=== PATIENT | male | born 1955 | race Caucasian/White ===

== ENCOUNTER → 2017-01-30 | Outpatient (CLI) | payer OTHER | LOC: FIMAGING 09:50 | PROVIDERS: ATTEND Internal Medicine | DX: R05 Cough (principal) ==

== ENCOUNTER 2017-07-26 20:36 | Emergency (ER) | payer OTHER ==
[2017-07-26 20:47] VITALS: RESP 20
[2017-07-26] MEDS ORDERED: ALBUTEROL 3 ML DEYVIAL IH ONE ×2 (20:54→21:47)
--- NOTE | 2017-07-26 20:57 | EDPHY ---
H & P Stated Complaint: cough Time Seen by Provider: 07/26/17 20:48 HPI/ROS: Chief Complaint: Cough HPI: 62-year-old male presenting with 1 1/2 weeks of dry, nonproductive cough. No fevers or chills. No shortness of breath. No abdominal pain. No nausea or vomiting. No chest pain. He does not smoke. Does drink alcohol. Denies any other recreational drug use. No aggravating or relieving factors. Does feel like he is wheezing as well. ROS: 10 point Review of Systems is negative except as noted in the HPI. PMH: Hypertension, hyperlipidemia Social History: No smoking, occasional alcohol, no recreational drug use Family History: non-contributory Physical Exam: Gen: Awake, Alert, No Distress HEENT: Nose: no rhinorrhea Eyes: PERRLA, EOMI Mouth: Moist mucosa Neck: Supple, no JVD Chest: nontender, diffuse expiratory wheezes, no focal rales or rhonchi Heart: S1, S2 normal, no murmur Abd: Soft, non-tender, no guarding Back: no CVA tenderness, no midline tenderness Ext: no edema, non-tender Skin: no rash Neuro: CN II-XII intact, Sensation grossly intact, Strength 5/5 in bilateral upper and lower extremities - Personal History Current Tetanus Diphtheria and Acellular Pertussis (TDAP): Unsure - Medical/Surgical History Hx Asthma: No Hx Chronic Respiratory Disease: No Hx Diabetes: Yes Hx Cardiac Disease: No Hx Renal Disease: No Hx Cirrhosis: No Hx Alcoholism: No Hx HIV/AIDS: No Hx Splenectomy or Spleen Trauma: No Other PMH: HTN, gout, elevated cholesterol. Surgical history includes right ACL repair and left meniscus surgery - Social History Smoking Status: Never smoked Constitutional: Initial Vital Signs Temperature (C) 36.3 C 07/26/17 20:44 Heart Rate 71 07/26/17 20:44 Respiratory Rate 20 07/26/17 20:44 Blood Pressure 141/102 H 07/26/17 20:44 O2 Sat (%) 94 07/26/17 20:44 Allergies/Adverse Reactions: No Known Allergies Allergy (Verified 07/26/17 20:44) Home Medications: Medication Instructions Recorded Aspirin [Aspirin 81mg (*)] 04/23/16 Diltiazem Cd [Cardizem ER 120 MG 04/23/16 (*)] Ezetimibe [Zetia 10 MG (*)] 04/23/16 FENOFIBRATE 04/23/16 Metoprolol Succinate 04/23/16 Rosuvastatin Calcium [Crestor 20mg 04/23/16 (*)] Benzonatate [Tessalon Pearles (RX)] 100 mg PO TID PRN #10 cap 07/26/17 Medical Decision Making - Data Points Medications Given: Discontinued Medications Albuterol (Proventil Neb) 3 ml IH EDNOW ONE Stop: 07/26/17 20:55 Last Admin: 07/26/17 20:58 Dose: 3 ml Albuterol (Proventil Neb) 3 ml IH EDNOW ONE Stop: 07/26/17 21:48 Last Admin: 07/26/17 21:49 Dose: 3 ml Benzonatate (Tessalon Pearles) 100 mg PO EDNOW ONE Stop: 07/26/17 21:13 Last Admin: 07/26/17 21:15 Dose: 100 mg Departure - Departure Disposition: Home, Routine, Self-Care Clinical Impression: Acute bronchitis Condition: Good Instructions: Acute Bronchitis (ED) Additional Instructions: Use the inhaler, 2 puffs every 4 hr, for cough or wheeze. Always use a spacer when you use inhaler. If you are still coughing you may use Tessalon for cough. If you continue to cough may take 1 hydrocodone every 6 hr for cough. Follow up with your primary care doc in 1-2 days if symptoms are not improving. Return to the emergency department for increasing cough, shortness of breath, chest pain, high fevers, or any other concerns. Referrals: Andra Liz MD [Primary Care Provider] - As per Instructions Prescriptions: Benzonatate [Tessalon Pearles (RX)] 100 mg PO TID PRN #10 cap PRN Reason: Cough, Moderate
[2017-07-26] MEDS ORDERED: BENZONATATE 100 MG CAP PO ONE (21:12)
[2017-07-26] MEDS ORDERED: HYDROCOD/APAP 5/325 PREPACK#6 BTL TAKEHOME ONE (22:07)
[2017-07-26] MEDS ORDERED: ALBUTEROL INH PREPACK MDI TAKEHOME ONE (22:08)
[2017-07-26 22:33] VITALS: BP 133/78; PULSE 76; TEMP 97.7; O2SAT 92
== END 2017-07-26 22:33 | disposition home or self-care (01) ==
LOC: CED 20:36
DX: J20.9 Acute bronchitis, unspecified (principal); I10 Essential (primary) hypertension; E11.9 Type 2 diabetes mellitus without complications; Z79.82 Long term (current) use of aspirin
CPT/HCPCS: J7613

== ENCOUNTER → 2018-09-28 | Outpatient (CLI) | payer OTHER | LOC: BHLMT 09:20 | PROVIDERS: ATTEND Internal Medicine Cardiovascular Disease | DX: I48.91 Unspecified atrial fibrillation (principal); I10 Essential (primary) hypertension | CPT/HCPCS: 93306-PO ==

== ENCOUNTER → 2018-10-11 | Outpatient (CLI) | payer OTHER | LOC: BHLMT 09:00 | PROVIDERS: ATTEND Internal Medicine Cardiovascular Disease | DX: I48.91 Unspecified atrial fibrillation (principal) ==

== ENCOUNTER → 2018-10-29 | Outpatient (CLI) | payer OTHER | LOC: BHLMT 10:45 | PROVIDERS: ATTEND Internal Medicine Cardiovascular Disease | DX: I25.10 Atherosclerotic heart disease of native coronary artery without angina pectoris (principal); I10 Essential (primary) hypertension | CPT/HCPCS: 76775-PO ==